=== PATIENT | female | born 1995 | race Caucasian/White ===

== ENCOUNTER 2020-10-28 16:38 | Emergency (ER) | payer MEDICAID ==
[~2020-10-28] VITALS: Ht 144.8 cm; Wt 63.2 kg
[~2020-10-28 16:38] MED LIST: HUMALOG 30100 UNITS/; HUMALOG 30100 UNITS/ SC; TOPROL XL50 MG PO; ZOLOFT50 MG PO
[2020-10-28 16:51] VITALS: BP 103/55; Ht 144.8 cm; Wt 63.2 kg
[2020-10-28] MEDS ORDERED: TOPAMAX50 MG PO (16:55)
[2020-10-28] MEDS ORDERED: PEPCID AC20 MG PO (16:56)
[2020-10-28 17:33] LABS: BILIRUBIN NEGATIVE (NEGATIVE); KETONE LARGE mg/dL (NEGATIVE); NITRITE NEGATIVE (NEGATIVE); UROBILINOGEN NORMAL mg/dL (< 2)
[2020-10-28 17:41] LABS: BASOPHILS 0.5 % (0-2); EOSINOPHILS 2.9 % (0-7); HEMATOCRIT 41.8 % (36.0-48.0); HEMOGLOBIN 13.9 g/dL (12-16); IMMATURE GRANULOCYTES 0.2 % (0-5); LYMPHOCYTE ABS# 2.07 10x3/uL (1.18-3.74); MCH 29.3 pg (26.0-34.0); MCHC 33.3 g/dL (31.0-37.0); MEAN PLATELET VOLUME 10.4 fL (7.4-10.4); MONOCYTES 5.3 % (2-11); NEUTROPHIL ABS# 9.66 10x3/uL (1.56-6.13); NEUTROPHILS 75.1 % (40-80); PLATELET COUNT 381 10x3/uL (130-400); RBC 4.75 10x6/uL (4.00-5.40); RDW 13.2 % (11.5-14.5); WBC 12.9 10x3/uL (4.8-10.8)
[2020-10-28 17:48] LABS: CALC OSMOLALITY 275 mosm/kg (275-300); CALCIUM 9.1 mg/dL (8.5-10.1); CARBON DIOXIDE 12.3 mmol/L (21.0-32.0); CHLORIDE - SERUM 99 mmol/L (98-107); CREATININE - SERUM 0.9 mg/dL (0.6-1.3); POTASSIUM - SERUM 4.1 mmol/L (3.5-5.1); SODIUM 132 mmol/L (136-145); UREA NITROGEN 11 mg/dL (7-18); eGFR NON AFRICAN AMERICAN 81 mL/min (90-120)
[2020-10-28 17:51] LABS: GLUCOSE 313 mg/dL (74-106)
[2020-10-28 17:52] LABS: INFLUENZA TYPE A NEGATIVE (NEGATIVE); INFLUENZA TYPE B NEGATIVE (NEGATIVE); SARS-CoV-2 ANTIGEN NEGATIVE- SARS-COV-2 (NEGATIVE)
[2020-10-28 17:54] LABS: ALBUMIN 4.5 g/dL (3.4-5.0); ALKALINE PHOSPHATASE 121 U/L (30-120); ALT (SGPT) 18 U/L (10-68); BILIRUBIN - TOTAL 0.57 mg/dL (0.2-1.3); MAGNESIUM - SERUM 1.7 mg/dL (1.8-2.4); PROTEIN - SERUM 8.1 g/dL (6.4-8.2)
[2020-10-28] MEDS ORDERED: ZPAK PO (18:50)
[2020-10-28] MEDS ORDERED: BROMFED-DM COU473 ML PO (18:50)
[2020-10-28] MEDS ORDERED: DELSYM30 MG/5 M1 PO (18:52)
== END 2020-10-28 19:21 | disposition home or self-care (01) ==
LOC: D.ER 16:38
PROVIDERS: Family Medicine
DX: J06.9 Acute upper respiratory infection, unspecified (principal); E11.9 Type 2 diabetes mellitus without complications; R09.81 Nasal congestion; Z79.4 Long term (current) use of insulin; Z72.0 Tobacco use; R11.2 Nausea with vomiting, unspecified

== ENCOUNTER 2020-11-14 11:54 | Inpatient (IN) | payer MEDICAID ==
[~2020-11-14] VITALS: Ht 144.8 cm; Wt 52.9 kg
[2020-11-14] VITALS (10 sets, daily range): BP systolic 90–112; BP diastolic 30–74; BMI 29.8
[~2020-11-14 11:54] MED LIST changes: +BROMFED-DM COU473 ML PO; +DELSYM30 MG/5 M1 PO; +PEPCID AC20 MG PO; +TOPAMAX50 MG PO; +ZPAK PO
[2020-11-14 12:42] LABS: ALBUMIN 4.9 g/dL (3.4-5.0); ANION GAP 30.6 mmol/L (8-16); BILIRUBIN - TOTAL 0.82 mg/dL (0.2-1.3); CALCIUM 9.8 mg/dL (8.5-10.1); CREATININE - SERUM 1.1 mg/dL (0.6-1.3); POTASSIUM - SERUM 3.8 mmol/L (3.5-5.1); PROTEIN - SERUM 8.5 g/dL (6.4-8.2)
[2020-11-14 12:47] LABS: LYMPHOCYTE ABS# 5.13 10x3/uL (1.18-3.74); MCH 28.9 pg (26.0-34.0); MCHC 32.6 g/dL (31.0-37.0); MCV 88.8 fL (80.0-100.0); MEAN PLATELET VOLUME 10.9 fL (7.4-10.4); NEUTROPHIL ABS# 13.88 10x3/uL (1.56-6.13); PLATELET COUNT 481 10x3/uL (130-400); RBC 4.84 10x6/uL (4.00-5.40); RDW 13.4 % (11.5-14.5); WBC 20.4 10x3/uL (4.8-10.8)
[2020-11-14 12:56] LABS: CARBON DIOXIDE 9.2 mmol/L (21.0-32.0)
[2020-11-14 13:27] LABS: HCG SERUM NEGATIVE (NEGATIVE)
--- NOTE | 2020-11-14 13:44 | NUR ---
FEELING BETTER, NO FURTHER VOMITING.
[2020-11-14 13:53] LABS: BILIRUBIN NEGATIVE (NEGATIVE); KETONE LARGE mg/dL (NEGATIVE); NITRITE NEGATIVE (NEGATIVE); UROBILINOGEN NORMAL mg/dL (< 2); WHITE CELLS - URINE OCC HPF (0-4)
[2020-11-14 13:54] LABS: BACTERIA FEW HPF (NONE SEEN)
[2020-11-14 13:59] LABS: EOSINOPHILS 2 % (0-7); LYMPHOCYTES 20 % (15-50); MONOCYTES 10 % (2-11); NEUTROPHILS 68 % (40-80); PLATELET ESTIMATE INCREASED
--- NOTE | 2020-11-14 14:08 | NUR ---
PT ARRIVED TO UNIT VIA WHEEL CHAIR, HOOKED TO MONITORS, ALERT AND ORIENTED, ALL VSS, CALL LIGHT IN REACH
[2020-11-14 16:05] LABS: ANION GAP 25.6 mmol/L (8-16); MAGNESIUM - SERUM 1.6 mg/dL (1.8-2.4); POTASSIUM - SERUM 4.6 mmol/L (3.5-5.1)
--- NOTE | 2020-11-14 16:45 | NUR ---
LAYING IN BED RESTING COMFORTABLE, NO NEEDS VOICED AT THIS TIME, CALL LIGHT IN REACH, WILL MONITOR
[2020-11-14 19:58] LABS: ANION GAP 21.4 mmol/L (8-16); CALCIUM 8.2 mg/dL (8.5-10.1); MAGNESIUM - SERUM 1.7 mg/dL (1.8-2.4); POTASSIUM - SERUM 4.8 mmol/L (3.5-5.1)
[2020-11-14 20:03] LABS: CARBON DIOXIDE 12.4 mmol/L (21.0-32.0)
[2020-11-15] VITALS (18 sets, daily range): BP systolic 86–145; BP diastolic 43–73; Ht 144.8 cm; Wt 52.9 kg
[2020-11-15 05:04] LABS: BASOPHILS 0.4 % (0-2); EOSINOPHILS 1.3 % (0-7); HEMATOCRIT 36.2 % (36.0-48.0); IMMATURE GRANULOCYTES 0.3 % (0-5); LYMPHOCYTE ABS# 2.92 10x3/uL (1.18-3.74); LYMPHOCYTES 19.3 % (15-50); MCH 28.7 pg (26.0-34.0); MCHC 33.1 g/dL (31.0-37.0); MEAN PLATELET VOLUME 10.1 fL (7.4-10.4); MONOCYTES 7.5 % (2-11); NEUTROPHILS 71.2 % (40-80); RBC 4.18 10x6/uL (4.00-5.40); RDW 13.1 % (11.5-14.5)
[2020-11-15 05:15] LABS: MCV 86.6 fL (80.0-100.0); PLATELET COUNT 365 10x3/uL (130-400); WBC 15.2 10x3/uL (4.8-10.8)
[2020-11-15 05:41] LABS: ALKALINE PHOSPHATASE 85 U/L (30-120); ALT (SGPT) 17 U/L (10-68); BILIRUBIN - TOTAL 0.48 mg/dL (0.2-1.3); CALCIUM 8.2 mg/dL (8.5-10.1); CHLORIDE - SERUM 104 mmol/L (98-107); CREATININE - SERUM 0.9 mg/dL (0.6-1.3); GLUCOSE 130 mg/dL (74-106); MAGNESIUM - SERUM 1.6 mg/dL (1.8-2.4); PROTEIN - SERUM 6.5 g/dL (6.4-8.2); SODIUM 133 mmol/L (136-145); eGFR NON AFRICAN AMERICAN 81 mL/min (90-120)
[2020-11-15 05:45] LABS: ALBUMIN 3.5 g/dL (3.4-5.0); CALC OSMOLALITY 265 mosm/kg (275-300); POTASSIUM - SERUM 3.5 mmol/L (3.5-5.1); UREA NITROGEN 6 mg/dL (7-18)
--- NOTE | 2020-11-15 06:47 | NUR ---
PATIENT BROUGHT TO ROOM CV07 VIA W/C TRANSFERRED SELF TO BED. PATIENT IS ALERT AND ORIENTED TO PERSON, PLACE, AND TIME. NO DISTRESS NOTED. PATIENT UP TO BATHROOM WITHOUT ASSIST. CALL LIGHT WITHIN REACH, BED IN LOW POSITION, AND WILL CONTINUE TO MONITOR.
--- NOTE | 2020-11-15 14:52 | NUR ---
PATIENT HAS SLEPT ALL DAY LONG AND HAS NOT WANTED TO EAT. MONITORING BS Q 1 HOUR AT THIS POINT STILL. NO COMPLAINTS VOICED AND NO SIGNS OF DISTRESS.
--- NOTE | 2020-11-15 16:52 | NUR ---
PATIENT TO TRANSFER TO [facility] VIA WHEELCHAIR. DR. NETTLES CALLED AND INSULIN DRIP STOPPED AND IVFLUID AND WILL CHECK BS AT 2000 AND GO BY SCALE. NO COMPLAINTS FROM PATIENT.
--- NOTE | 2020-11-15 22:24 | NUR ---
PT RECEIVED INSULIN PUMP, PUMP PLACED ON ENTERPRISE APPLICATION DEVELOPER AT THIS TIME.
[2020-11-16] VITALS (19 sets, daily range): BP systolic 95–142; BP diastolic 36–93
--- NOTE | 2020-11-16 00:10 | NUR ---
PT STARTS INSULIN PUMP AT 2240 WITH CHARGE AT 60%, PT STATES THAT A FULL CHARGE LAST FOR SEVERAL DAYS.
[2020-11-16 05:23] LABS: BASOPHILS 0.4 % (0-2); EOSINOPHILS 1.2 % (0-7); HEMATOCRIT 37.7 % (36.0-48.0); HEMOGLOBIN 12.8 g/dL (12-16); IMMATURE GRANULOCYTES 0.4 % (0-5); LYMPHOCYTE ABS# 2.74 10x3/uL (1.18-3.74); LYMPHOCYTES 24.4 % (15-50); MCH 28.8 pg (26.0-34.0); MCV 84.9 fL (80.0-100.0); MEAN PLATELET VOLUME 10.3 fL (7.4-10.4); MONOCYTES 4.9 % (2-11); NEUTROPHIL ABS# 7.72 10x3/uL (1.56-6.13); NEUTROPHILS 68.7 % (40-80); PLATELET COUNT 359 10x3/uL (130-400); RBC 4.44 10x6/uL (4.00-5.40); RDW 13.3 % (11.5-14.5)
[2020-11-16 05:39] LABS: WBC 11.2 10x3/uL (4.8-10.8)
[2020-11-16 05:50] LABS: ALBUMIN 3.8 g/dL (3.4-5.0); ALKALINE PHOSPHATASE 90 U/L (30-120); ALT (SGPT) 16 U/L (10-68); BILIRUBIN - TOTAL 0.52 mg/dL (0.2-1.3); CALC OSMOLALITY 270 mosm/kg (275-300); CALCIUM 8.4 mg/dL (8.5-10.1); CARBON DIOXIDE 14.6 mmol/L (21.0-32.0); CHLORIDE - SERUM 105 mmol/L (98-107); CREATININE - SERUM 0.8 mg/dL (0.6-1.3); GLUCOSE 95 mg/dL (74-106); POTASSIUM - SERUM 3.6 mmol/L (3.5-5.1); PROTEIN - SERUM 6.9 g/dL (6.4-8.2); SODIUM 137 mmol/L (136-145); UREA NITROGEN 5 mg/dL (7-18); eGFR NON AFRICAN AMERICAN > 90 mL/min (90-120)
--- NOTE | 2020-11-16 08:21 | NUR ---
FSBS TREATED PER S/S, WAS TOLD INREPORT TO CONTINUE S/S AND INSULIN PUMP PER DR MAGALLON
--- NOTE | 2020-11-16 17:30 | NUR ---
PAGED DR SARABIA TO NOTIFY OF MIGRAINE AND THAT PT TAKES SUMATRIPTIN AT HOME, ORDERS FOR SUMATRIPTIN, SERUM KETONES AND TO TRANSFER TO FLOOR
--- NOTE | 2020-11-16 19:00 | NUR ---
REPORT REC'D, ASSUMED PT'S CARE. PT A/OX4, DENIES DISCOMFORT AT THIS TIME. VSS. ASSESSMENT COMPLETED. CALL LIGHT IN REACH. CPOC.
--- NOTE | 2020-11-16 20:32 | NUR ---
PT C/O NAUSEA, ZOFRAN 4MG IVP GIVEN PER ORDER. WILL CONT TO MONITOR.
[2020-11-17 03:00] VITALS: BP 105/71
[2020-11-17 05:46] LABS: BASOPHILS 0.4 % (0-2); EOSINOPHILS 4.7 % (0-7); HEMATOCRIT 40.9 % (36.0-48.0); HEMOGLOBIN 13.7 g/dL (12-16); IMMATURE GRANULOCYTES 0.3 % (0-5); LYMPHOCYTE ABS# 2.62 10x3/uL (1.18-3.74); LYMPHOCYTES 34.1 % (15-50); MCH 28.8 pg (26.0-34.0); MCHC 33.5 g/dL (31.0-37.0); MCV 85.9 fL (80.0-100.0); MEAN PLATELET VOLUME 9.8 fL (7.4-10.4); MONOCYTES 6.9 % (2-11); NEUTROPHIL ABS# 4.12 10x3/uL (1.56-6.13); NEUTROPHILS 53.6 % (40-80); PLATELET COUNT 359 10x3/uL (130-400); RBC 4.76 10x6/uL (4.00-5.40); RDW 13.4 % (11.5-14.5)
[2020-11-17 05:50] LABS: WBC 7.7 10x3/uL (4.8-10.8)
[2020-11-17 06:18] LABS: ALBUMIN 3.9 g/dL (3.4-5.0); ALKALINE PHOSPHATASE 96 U/L (30-120); ALT (SGPT) 17 U/L (10-68); BILIRUBIN - TOTAL 0.74 mg/dL (0.2-1.3); CALCIUM 8.9 mg/dL (8.5-10.1); CARBON DIOXIDE 14.9 mmol/L (21.0-32.0); CHLORIDE - SERUM 104 mmol/L (98-107); CREATININE - SERUM 0.9 mg/dL (0.6-1.3); POTASSIUM - SERUM 3.9 mmol/L (3.5-5.1); PROTEIN - SERUM 7.4 g/dL (6.4-8.2); SODIUM 136 mmol/L (136-145); UREA NITROGEN 5 mg/dL (7-18); eGFR NON AFRICAN AMERICAN 81 mL/min (90-120)
[2020-11-17 06:28] LABS: CALC OSMOLALITY 272 mosm/kg (275-300); GLUCOSE 172 mg/dL (74-106)
[2020-11-17 07:45] VITALS: BP 101/41
--- NOTE | 2020-11-17 07:57 | NUR ---
Nutrition follow-up: Diet order: consistent CHO PO Intake continues to be poor due to nausea, migraiine per pt Labs reviewed; Glucose under better control since starting insulin pump Gap still not closed A1c: 7.9% Wt: 138# No BM recorded; with PRN Reglan ordered; has not been given. Will continue to provide food choices and honor food preferences within diet restrictions. Will offer Raudel Michaels RDN follow-up: 11/20/20
--- NOTE | 2020-11-17 08:52 | NUR ---
0745: AROUSES EASILY TO VERBAL STIMULI. INSULIN PUMP INTACT AND INFUSING @ 2UNITS/HR. NO DISTRESS NOTED. DENIES ANY NAUSEA.
[2020-11-17 11:30] VITALS: BP 98/50
[2020-11-17 15:00] VITALS: BP 113/64
[2020-11-17 19:30] VITALS: BP 117/58
[2020-11-18 00:51] VITALS: BP 123/69
[2020-11-18 04:00] VITALS: BP 123/79
[2020-11-18 04:49] LABS: BASOPHILS 0.7 % (0-2); EOSINOPHILS 5.3 % (0-7); HEMATOCRIT 42.3 % (36.0-48.0); HEMOGLOBIN 14.3 g/dL (12-16); IMMATURE GRANULOCYTES 0.5 % (0-5); LYMPHOCYTE ABS# 2.51 10x3/uL (1.18-3.74); LYMPHOCYTES 33.5 % (15-50); MCH 29.2 pg (26.0-34.0); MCHC 33.8 g/dL (31.0-37.0); MCV 86.3 fL (80.0-100.0); MEAN PLATELET VOLUME 10.5 fL (7.4-10.4); MONOCYTES 7.9 % (2-11); NEUTROPHILS 52.1 % (40-80); RDW 13.5 % (11.5-14.5); WBC 7.5 10x3/uL (4.8-10.8)
[2020-11-18 04:54] LABS: PLATELET COUNT 265 10x3/uL (130-400)
[2020-11-18 05:08] LABS: ALKALINE PHOSPHATASE 97 U/L (30-120); ALT (SGPT) 16 U/L (10-68); BILIRUBIN - TOTAL 0.79 mg/dL (0.2-1.3); CALC OSMOLALITY 270 mosm/kg (275-300); CALCIUM 9.3 mg/dL (8.5-10.1); CARBON DIOXIDE 13.6 mmol/L (21.0-32.0); CHLORIDE - SERUM 105 mmol/L (98-107); CREATININE - SERUM 0.8 mg/dL (0.6-1.3); GLUCOSE 118 mg/dL (74-106); POTASSIUM - SERUM 3.8 mmol/L (3.5-5.1); PROTEIN - SERUM 7.5 g/dL (6.4-8.2); SODIUM 136 mmol/L (136-145); UREA NITROGEN 6 mg/dL (7-18); eGFR NON AFRICAN AMERICAN > 90 mL/min (90-120)
[2020-11-18 09:00] VITALS: BP 123/69
[2020-11-18 13:00] VITALS: BP 117/76
[2020-11-18 16:00] VITALS: BP 104/83
[2020-11-18 20:00] VITALS: BP 117/82
[2020-11-19] VITALS (12 sets, daily range): BP systolic 92–144; BP diastolic 49–91
--- NOTE | 2020-11-19 06:14 | NUR ---
PATIENT WAS WITHOUT S/S DISTRESS THROUGHOUT SHIFT. REQUIRED PRN MEDS FOR HEADACHE AND SHOULDER PAIN. NO OTHER ISSUES TO NOTE. ANTONI OH
[2020-11-19 09:08] LABS: ANION GAP 28.8 mmol/L (8-16); CALCIUM 9.2 mg/dL (8.5-10.1); MAGNESIUM - SERUM 1.7 mg/dL (1.8-2.4); PHOSPHOROUS 3.1 mg/dL (2.5-4.9); POTASSIUM - SERUM 3.8 mmol/L (3.5-5.1)
[2020-11-19 09:10] LABS: CREATININE - SERUM 1.1 mg/dL (0.6-1.3)
--- NOTE | 2020-11-19 10:16 | NUR ---
0800: CALLED NURSE TO BEDSIDE. NAUSEATED AND VOMITING. STATES SHE FEELS LIKE HER SUGAR IS UP. 0804: PEPCID AND ZOFRAN GIVEN. FSBS 336. STRONG KETOSIS ODOR NOTED. C/O ABD CRAMPING ALSO. STATES SHE FEELS LIKE SHE DID WHEN SHE FIRST CAME IN. 0814: DR. MAGALLON PAGED THROUGH ANSWERING SERVICE. 0840: REC'D RETURN CALL FROM DR. MAGALLON. PATIENT UPDATE GIVEN. NEW ORDERS REC'D.
--- NOTE | 2020-11-19 10:38 | NUR ---
DR. STEVE HERE. CONDITION UPDATE GIVEN.
[2020-11-19 12:33] LABS: BILIRUBIN NEGATIVE (NEGATIVE); KETONE LARGE mg/dL (NEGATIVE); NITRITE NEGATIVE (NEGATIVE); UROBILINOGEN NORMAL mg/dL (< 2)
[2020-11-19 12:35] LABS: SQUAMOUS EPITHELIAL 0-5 HPF (0-4); WHITE CELLS - URINE 3 HPF (0-4)
[2020-11-19 12:36] LABS: BACTERIA FEW HPF (NONE SEEN); GRANULAR CAST 1 LPF (NONE SEEN)
[2020-11-19 13:19] LABS: CALC OSMOLALITY 267 mosm/kg (275-300); CARBON DIOXIDE 12.7 mmol/L (21.0-32.0); CHLORIDE - SERUM 104 mmol/L (98-107); CREATININE - SERUM 0.9 mg/dL (0.6-1.3); GLUCOSE 127 mg/dL (74-106); POTASSIUM - SERUM 3.9 mmol/L (3.5-5.1); SODIUM 134 mmol/L (136-145); UREA NITROGEN 7 mg/dL (7-18); eGFR NON AFRICAN AMERICAN 81 mL/min (90-120)
--- NOTE | 2020-11-19 13:31 | NUR ---
1046: MOTHER HERE AND DEMANDING SHE BE TRANSFERRED TO [facility]. STATES SHE DOESN'T FEEL LIKE SHE SHOULD HAVE EVER BEEN TAKEN OFF INSULIN GTT WHILE SHE STILL HAD KETONES. SHE SAID SHE WANTED HER DAUGHTER'S FINANCIAL RISK MANAGER TO SEE HER AND THAT SHE HAD PLACED A CALL TO THE OFFICE AND NO RETURN PHONE CALL TO BE EXPECTED UNTIL TOMORROW. INFORMED HER THAT UNLESS IT IS A HIGHER LEVEL OF CARE THEN I DIDN'T THINK THAT A TRANSFER WAS POSSIBLE BUT I WOULD PLACE A CALL TO CASE MANAGEMENT. 1050: FISH HATCHERY SPECIALIST AND CASE MANAGEMENT NOTIFIED OF MOTHER'S REQUEST TO HAVE PATIENT TRANSFERRED. 1230: SUPERVISOR [employer] UNIT HERE TO DISCUSS POSSIBLE TRANSFER TO [facility]. 1250: MOTHER SATISFIED WITH CONVERSATION SHE HAD WITH SUPERVISOR [employer]ICATING UNIT AND WENT HOME. SUPERVISOR [employer] UNIT TO CONTINUE TO FIND OUT IF TRANFER POSSIBLE.
[2020-11-19 16:06] LABS: MAGNESIUM - SERUM 1.7 mg/dL (1.8-2.4); PHOSPHOROUS 2.4 mg/dL (2.5-4.9)
[2020-11-19 20:12] LABS: CALCIUM 8.7 mg/dL (8.5-10.1); CHLORIDE - SERUM 102 mmol/L (98-107); CREATININE - SERUM 0.9 mg/dL (0.6-1.3); GLUCOSE 119 mg/dL (74-106); MAGNESIUM - SERUM 1.7 mg/dL (1.8-2.4); POTASSIUM - SERUM 3.8 mmol/L (3.5-5.1); SODIUM 134 mmol/L (136-145); eGFR NON AFRICAN AMERICAN 81 mL/min (90-120)
[2020-11-19 20:28] LABS: CALC OSMOLALITY 265 mosm/kg (275-300); CARBON DIOXIDE 19.5 mmol/L (21.0-32.0); PHOSPHOROUS 3.1 mg/dL (2.5-4.9); UREA NITROGEN 5 mg/dL (7-18)
--- NOTE | 2020-11-19 22:44 | MORECARE ---
CASE MANAGEMENT DISCHARGE SUMMARY PATIENT: NANDINI ARTIS UNIT: [id number] ADM DATE: 11/14/20 AGE: 24 : 95 SEX: F [facility] AUTHOR: IFEOMA,DOC PHYSICIAN: REFERRING PHYSICIAN: THEO MAGALLON MD DATE OF SERVICE: 11/19/20 Case Management Discharge Planning Summary COMMENTS ENTERED DATE: 11/19/20 22:23 CT COMMENT TYPE: Discharge Planning REVIEWER: Arabella Ortiz CM called to speak to patient and her mother Katherin regarding getting patient transferred to [facility] for Endocrinology. Patient's mother states that until September of this year patient hasn't ever been DKA but since Sep the patient has been admitted 3 times. She wants patient to be seen by endocrinology before she is discharged. Patient's general medical practitioner is with [facility]. CM spoke with [facility] bed control and they do not have endocrinology on weekends. CM explained that to patient and mother. They are alright with patient waiting til am if needed. CM called Director Of Compensation Helen and made her aware of the request. CM notified Dr. Magallon of request and he stated he would do P2P if needed. CM called bed control at [facility] and was told that they have no ICU bed availability at this time. CM faxed over requested records and will check back tomorrow for bed availability. CM called and made poker supervisor, nursing, patient and her mother aware of situation. CM will continue to follow and assist as needed with discharge planning/ needs. DCP REVIEW SUMMARY ANTICIPATED D/C DATE: EXPECTED LOS : CASE STATUS: DCP Initiated INITIAL REVIEW: 11/14/2020 INITIAL REVIEWER: Arabella Ortiz FINAL DISCHARGE DISPOSITION: : FINAL REVIEWER: FINAL REVIEW DATE: DCP Focus Questions & Answers - Added on: QUESTION: ANSWER : PATIENT: NANDINI ARTIS ENCOUNTER: [id number] MEDICAL RECORD#: [id number] ADMISSION DATE: 11/14/2020 DISCHARGE DATE: ATTENDING MD: THEO SIMPSON : AGE: 24 MARITAL STATUS: S DC PLAN ID: [id number] FACILITY: [facility] PRINTED ON: 11/19/20 22:44 CT All edits/amendments must be made on the electronic document DICTATION DATE: 11/19/202243 EMERGENCY VEHICLE DRIVER: DM 11/19/202243 RPT#: [id number] DC DATE: STATUS: ADM IN [facility] [address] [place] [address] END OF REPORT
[2020-11-20] VITALS (13 sets, daily range): BP systolic 92–118; BP diastolic 59–81
--- NOTE | 2020-11-20 00:42 | NUR ---
BMP AT 1999 IMPROVED. LAB HERE TO OBTAIN BMP FOR NOW. PT ALERT AND ORIENTED. DENIES C/O. NO VOMITING THIS SHIFT
[2020-11-20 01:16] LABS: CALC OSMOLALITY 270 mosm/kg (275-300); CALCIUM 9.1 mg/dL (8.5-10.1); CARBON DIOXIDE 18.7 mmol/L (21.0-32.0); CHLORIDE - SERUM 104 mmol/L (98-107); CREATININE - SERUM 0.8 mg/dL (0.6-1.3); GLUCOSE 136 mg/dL (74-106); MAGNESIUM - SERUM 1.7 mg/dL (1.8-2.4); PHOSPHOROUS 2.4 mg/dL (2.5-4.9); POTASSIUM - SERUM 3.9 mmol/L (3.5-5.1); SODIUM 136 mmol/L (136-145); UREA NITROGEN 5 mg/dL (7-18); eGFR NON AFRICAN AMERICAN > 90 mL/min (90-120)
[2020-11-20 04:44] LABS: BASOPHILS 0.7 % (0-2); EOSINOPHILS 5.5 % (0-7); HEMATOCRIT 37.6 % (36.0-48.0); IMMATURE GRANULOCYTES 0.2 % (0-5); LYMPHOCYTE ABS# 2.39 10x3/uL (1.18-3.74); LYMPHOCYTES 39.5 % (15-50); MCH 28.9 pg (26.0-34.0); MCHC 34.6 g/dL (31.0-37.0); MEAN PLATELET VOLUME 9.9 fL (7.4-10.4); MONOCYTES 9.3 % (2-11); NEUTROPHIL ABS# 2.72 10x3/uL (1.56-6.13); NEUTROPHILS 44.8 % (40-80); PLATELET COUNT 313 10x3/uL (130-400); RDW 13.1 % (11.5-14.5); WBC 6.1 10x3/uL (4.8-10.8)
[2020-11-20 05:10] LABS: MCV 83.6 fL (80.0-100.0)
[2020-11-20 05:16] LABS: ALBUMIN 3.6 g/dL (3.4-5.0); ALKALINE PHOSPHATASE 82 U/L (30-120); ALT (SGPT) 15 U/L (10-68); BILIRUBIN - TOTAL 0.64 mg/dL (0.2-1.3); CALC OSMOLALITY 270 mosm/kg (275-300); CALCIUM 8.8 mg/dL (8.5-10.1); CARBON DIOXIDE 17.7 mmol/L (21.0-32.0); CHLORIDE - SERUM 104 mmol/L (98-107); CREATININE - SERUM 0.8 mg/dL (0.6-1.3); GLUCOSE 142 mg/dL (74-106); PROTEIN - SERUM 6.7 g/dL (6.4-8.2); SODIUM 136 mmol/L (136-145); UREA NITROGEN 5 mg/dL (7-18); eGFR NON AFRICAN AMERICAN > 90 mL/min (90-120)
[2020-11-20 05:26] LABS: POTASSIUM - SERUM 3.3 mmol/L (3.5-5.1)
[2020-11-20 08:30] LABS: CALC OSMOLALITY 271 mosm/kg (275-300); CALCIUM 8.8 mg/dL (8.5-10.1); CARBON DIOXIDE 21.6 mmol/L (21.0-32.0); CHLORIDE - SERUM 105 mmol/L (98-107); CREATININE - SERUM 0.7 mg/dL (0.6-1.3); GLUCOSE 114 mg/dL (74-106); PHOSPHOROUS 2.8 mg/dL (2.5-4.9); POTASSIUM - SERUM 3.3 mmol/L (3.5-5.1); SODIUM 137 mmol/L (136-145); UREA NITROGEN 4 mg/dL (7-18); eGFR NON AFRICAN AMERICAN > 90 mL/min (90-120)
--- NOTE | 2020-11-20 08:42 | MORECARE ---
CASE MANAGEMENT DISCHARGE SUMMARY PATIENT: NANDINI ARTIS UNIT: [id number] ADM DATE: 11/14/20 AGE: 24 : 95 SEX: F ROOM/BED: D[facility] AUTHOR: IFEOAM,DOC PHYSICIAN: REFERRING PHYSICIAN: THEO MAGALLON MD DATE OF SERVICE: 11/20/20 Case Management Discharge Planning Summary COMMENTS ENTERED DATE: 11/20/20 8:31 CT COMMENT TYPE: Discharge Planning REVIEWER: Elsy Daniels CM called and spoke with Debra at [facility] about status of transfer. Debra informed CM that they do not have any beds available. States they are holding in their ED. States she will call CM with any updates. ENTERED DATE: 11/19/20 22:23 CT COMMENT TYPE: Discharge Planning REVIEWER: Arabella Ortiz CM called to speak to patient and her mother Katherin regarding getting patient transferred to [facility] for Endocrinology. Patient's mother states that until September of this year patient hasn't ever been DKA but since Sep the patient has been admitted 3 times. She wants patient to be seen by endocrinology before she is discharged. Patient's portable router operator is with [facility]. CM spoke with [facility] bed control and they do not have endocrinology on weekends. CM explained that to patient and mother. They are alright with patient waiting til am if needed. CM called Network Director Helen and made her aware of the request. CM notified Dr. Magallon of request and he stated he would do P2P if needed. CM called bed control at [facility] and was told that they have no ICU bed availability at this time. CM faxed over requested records and will check back tomorrow for bed availability. CM called and made coke handling supervisor, nursing, patient and her mother aware of situation. CM will continue to follow and assist as needed with discharge planning/ needs. DCP REVIEW SUMMARY ANTICIPATED D/C DATE: EXPECTED LOS : CASE STATUS: DCP Initiated INITIAL REVIEW: 11/14/2020 INITIAL REVIEWER: Arabella Ortiz FINAL DISCHARGE DISPOSITION: : FINAL REVIEWER: FINAL REVIEW DATE: DCP Focus Questions & Answers - Added on: QUESTION: ANSWER : PATIENT: NANDINI ARTIS ENCOUNTER: [id number] MEDICAL RECORD#: [id number] ADMISSION DATE: 11/14/2020 DISCHARGE DATE: ATTENDING MD: THEO SIMPSON : AGE: 24 MARITAL STATUS: S DC PLAN ID: [id number] FACILITY: [facility] PRINTED ON: 11/20/20 8:42 CT All edits/amendments must be made on the electronic document DICTATION DATE: 11/20/20841 ADMIN DIR: DM 11/20/20841 RPT#: [id number] DC DATE: STATUS: ADM IN [facility] [address] [place] [address] END OF REPORT
--- NOTE | 2020-11-20 12:16 | NUR ---
Nutrition Follow-up: NPO 2/2 DKA. Poor PO intake (0-20%) with N/V over the weekend. Wt: 114# (11/20); 115# (11/18); 137.7# (11/14) Labs noted: K+ 3.3, Glu 142, PO4 2.4, Mg 1.7 Meds noted: Reglan, Pepcid, Humulin, D5 1/2NS KCl @ 100, NS @ 100 -Resume diet when medically feasible. -Monitor wt. -RD follow-up: 11/22
[2020-11-20 12:57] LABS: CALC OSMOLALITY 269 mosm/kg (275-300); CALCIUM 8.8 mg/dL (8.5-10.1); CARBON DIOXIDE 20.4 mmol/L (21.0-32.0); CHLORIDE - SERUM 104 mmol/L (98-107); CREATININE - SERUM 0.6 mg/dL (0.6-1.3); GLUCOSE 123 mg/dL (74-106); PHOSPHOROUS 2.3 mg/dL (2.5-4.9); POTASSIUM - SERUM 3.6 mmol/L (3.5-5.1); SODIUM 136 mmol/L (136-145); UREA NITROGEN 3 mg/dL (7-18); eGFR NON AFRICAN AMERICAN > 90 mL/min (90-120)
[2020-11-20 16:29] LABS: CALC OSMOLALITY 273 mosm/kg (275-300); CALCIUM 8.9 mg/dL (8.5-10.1); CARBON DIOXIDE 18.8 mmol/L (21.0-32.0); CHLORIDE - SERUM 103 mmol/L (98-107); CREATININE - SERUM 0.6 mg/dL (0.6-1.3); GLUCOSE 161 mg/dL (74-106); PHOSPHOROUS 2.3 mg/dL (2.5-4.9); POTASSIUM - SERUM 3.5 mmol/L (3.5-5.1); SODIUM 137 mmol/L (136-145); eGFR NON AFRICAN AMERICAN > 90 mL/min (90-120)
[2020-11-20 16:30] LABS: UREA NITROGEN 4 mg/dL (7-18)
[2020-11-20 20:08] LABS: CALC OSMOLALITY 277 mosm/kg (275-300); CALCIUM 8.9 mg/dL (8.5-10.1); CARBON DIOXIDE 21.9 mmol/L (21.0-32.0); CHLORIDE - SERUM 104 mmol/L (98-107); CREATININE - SERUM 0.6 mg/dL (0.6-1.3); GLUCOSE 147 mg/dL (74-106); PHOSPHOROUS 2.4 mg/dL (2.5-4.9); POTASSIUM - SERUM 3.4 mmol/L (3.5-5.1); SODIUM 139 mmol/L (136-145); UREA NITROGEN 3 mg/dL (7-18); eGFR NON AFRICAN AMERICAN > 90 mL/min (90-120)
[2020-11-21] VITALS: BP 99/61
[2020-11-21 00:55] LABS: CALC OSMOLALITY 276 mosm/kg (275-300); CALCIUM 8.6 mg/dL (8.5-10.1); CARBON DIOXIDE 26.2 mmol/L (21.0-32.0); CHLORIDE - SERUM 106 mmol/L (98-107); CREATININE - SERUM 0.7 mg/dL (0.6-1.3); GLUCOSE 120 mg/dL (74-106); POTASSIUM - SERUM 3.4 mmol/L (3.5-5.1); SODIUM 140 mmol/L (136-145); UREA NITROGEN 3 mg/dL (7-18); eGFR NON AFRICAN AMERICAN > 90 mL/min (90-120)
[2020-11-21 01:00] VITALS: BP 119/70
--- NOTE | 2020-11-21 01:45 | NUR ---
PATIENT REQUESTS STOPPING INSULIN DRIP AT THIS TIME, EXPERIENCING DISCOMFORT DUE TO IVF WITH POTASSIUM INFUSION. WILL HOLD REQUESTED, RECHECK BLOOD SUGAR, AND RESUME IF OUTSIDE TARGET RANGE.
[2020-11-21 02:00] VITALS: BP 117/87
[2020-11-21 03:30] VITALS: BP 115/79
[2020-11-21 04:30] VITALS: BP 110/78
[2020-11-21 05:13] LABS: BASOPHILS 0.6 % (0-2); EOSINOPHILS 4.5 % (0-7); HEMATOCRIT 36.7 % (36.0-48.0); HEMOGLOBIN 12.7 g/dL (12-16); IMMATURE GRANULOCYTES 0.1 % (0-5); LYMPHOCYTES 33.3 % (15-50); MCH 28.6 pg (26.0-34.0); MCHC 34.6 g/dL (31.0-37.0); MCV 82.7 fL (80.0-100.0); MEAN PLATELET VOLUME 10.1 fL (7.4-10.4); MONOCYTES 8.7 % (2-11); NEUTROPHIL ABS# 3.64 10x3/uL (1.56-6.13); NEUTROPHILS 52.8 % (40-80); PLATELET COUNT 305 10x3/uL (130-400); RBC 4.44 10x6/uL (4.00-5.40); RDW 13.2 % (11.5-14.5); WBC 6.9 10x3/uL (4.8-10.8)
[2020-11-21 05:54] LABS: ALBUMIN 3.6 g/dL (3.4-5.0); ALKALINE PHOSPHATASE 80 U/L (30-120); ALT (SGPT) 16 U/L (10-68); BILIRUBIN - TOTAL 0.42 mg/dL (0.2-1.3); CALC OSMOLALITY 273 mosm/kg (275-300); CALCIUM 9.2 mg/dL (8.5-10.1); CARBON DIOXIDE 23.8 mmol/L (21.0-32.0); CHLORIDE - SERUM 105 mmol/L (98-107); CREATININE - SERUM 0.6 mg/dL (0.6-1.3); GLUCOSE 116 mg/dL (74-106); POTASSIUM - SERUM 3.9 mmol/L (3.5-5.1); PROTEIN - SERUM 6.6 g/dL (6.4-8.2); SODIUM 138 mmol/L (136-145); UREA NITROGEN 3 mg/dL (7-18); eGFR NON AFRICAN AMERICAN > 90 mL/min (90-120)
[2020-11-21 06:30] VITALS: BP 104/62
--- NOTE | 2020-11-21 07:05 | NUR ---
Shift summary: Patient continues on insulin drip. Tolerating po fluids. Denies nausea or vomiting.
[2020-11-21 09:01] LABS: CALCIUM 9.1 mg/dL (8.5-10.1); CARBON DIOXIDE 24.6 mmol/L (21.0-32.0); CHLORIDE - SERUM 103 mmol/L (98-107); CREATININE - SERUM 0.6 mg/dL (0.6-1.3); PHOSPHOROUS 2.8 mg/dL (2.5-4.9); SODIUM 137 mmol/L (136-145); eGFR NON AFRICAN AMERICAN > 90 mL/min (90-120)
[2020-11-21 09:02] LABS: CALC OSMOLALITY 278 mosm/kg (275-300); GLUCOSE 235 mg/dL (74-106); UREA NITROGEN 4 mg/dL (7-18)
[2020-11-21 12:09] LABS: CALC OSMOLALITY 276 mosm/kg (275-300); CALCIUM 9.2 mg/dL (8.5-10.1); CARBON DIOXIDE 26.1 mmol/L (21.0-32.0); CHLORIDE - SERUM 104 mmol/L (98-107); CREATININE - SERUM 0.6 mg/dL (0.6-1.3); GLUCOSE 103 mg/dL (74-106); PHOSPHOROUS 2.6 mg/dL (2.5-4.9); POTASSIUM - SERUM 3.8 mmol/L (3.5-5.1); SODIUM 140 mmol/L (136-145); UREA NITROGEN 7 mg/dL (7-18); eGFR NON AFRICAN AMERICAN > 90 mL/min (90-120)
[2020-11-21] MEDS ORDERED: REGLAN10 MG PO (14:21)
== END 2020-11-21 15:00 | disposition home or self-care (01) | DRG 639 ==
LOC: D.ER 11:54 → D.CVICU 13:45 → D.ICU 13:45 → D.CVICU 11-15 16:45
PROVIDERS: Emergency Medicine; Internal Medicine Gastroenterology; ADMIT Legal Medicine; ATTEND Legal Medicine
DX: E10.10 Type 1 diabetes mellitus with ketoacidosis without coma (principal); R11.0 Nausea; D72.829 Elevated white blood cell count, unspecified; Z79.4 Long term (current) use of insulin; Z96.41 Presence of insulin pump (external) (internal)